=== PATIENT | female | born 1970 | race Caucasian/White ===

== ENCOUNTER 2022-02-25 19:00 | Emergency (ER) | payer MEDICAID, SELFPAY ==
[2022-02-25 18:59] VITALS: BP 126/64; PULSE 93; RESP 16; TEMP 36.2; O2SAT 99
--- NOTE | 2022-02-25 19:41 | ED.PSYCH ---
HPI - Psych General Chief Complaint: Psychiatric Symptoms <Brenda Seals MD - Last Filed: 02/26/22 07:12> Stated Complaint: HALLUCINATIONS <Brenda Seals MD - Last Filed: 02/26/22 07:12> Time Seen by Provider: 02/25/22 19:08 <Brenda Seals MD - Last Filed: 02/26/22 07:12> History of Present Illness HPI Narrative: 51-year-old female with history of bipolar disorder who is not currently taking medications and denies any recent drug use presents here after being brought by EMS and police due to being found hallucinating and locking her self in the bathroom. She denies any complaints at all to me. States that she is here because they wanted her to get some olanzapine. <Brenda Seals MD - Last Filed: 02/26/22 07:12> Review of Systems Review of Systems: CONST: No fever. HEENT: No sore throat C/V: No chest pain RESP: No cough GI: No abdominal pain : No dysuria. M/S: No joint pain. SKIN: No rash. NEURO: [No headache or focal numbness or weakness] PSYCH: Hallucinations <Brenda Seals MD - Last Filed: 02/26/22 07:12> FOR[facility]LY [facility] Past Medical History Medical History: Medical History (Updated 02/26/22 @ 07:57 by Erick Pantoja DO) Bipolar 1 disorder <Brenda Seals MD - Last Filed: 02/26/22 07:12> Social History Social History: Social History (Updated 02/25/22 @ 19:43 by Brenda Seals MD) Substance use type: unknown <Brenda Seals MD - Last Filed: 02/26/22 07:12> Exam Narrative: EXAMINATION OF ORGAN SYSTEMS/BODY AREAS: Constitutional: Vital signs per nursing GENERAL:[No acute distress, non-toxic appearing.] HEAD: Normal with no signs of head trauma. EYES: EOMI, conjunctiva normal ENT: Hearing grossly intact LUNGS: Nonlabored breathing. HEART: [Regular rate and rhythm] ABD: [Soft], nondistended EXT: Normal range of motion SKIN: [No rashes or lesions.] NEURO: [Alert and oriented x 3. No gross focal sensory or strength deficits.] PSYCH: Randomly giggling to herself in the room. Cooperative, pleasant, and answering questions <Brenda Seals MD - Last Filed: 02/26/22 07:12> Course Course Emergency Course: Care turned over to myself at shift change. Patient currently resting in bed agrees initial H&P Patient accepted to [facility] by Dr. Saul <Erick Pantoja DO - Last Filed: 02/26/22 07:57> Vital Signs Vital signs: Vital Signs Temperature 97.2 F L 02/25/22 18:59 Pulse Rate 93 02/25/22 18:59 Respiratory Rate 16 02/25/22 18:59 Blood Pressure 126/64 02/25/22 18:59 Pulse Oximetry 99 02/25/22 18:59 Oxygen Delivery Room Air 02/25/22 18:59 Temperature 97.2 F L 02/25/22 18:59 Pulse Rate 93 02/25/22 18:59 Respiratory Rate 16 02/25/22 18:59 Blood Pressure 126/64 02/25/22 18:59 Pulse Oximetry 99 02/25/22 18:59 Oxygen Delivery Room Air 02/25/22 18:59 <Brenda Seals MD - Last Filed: 02/26/22 07:12> Vital Signs Temperature 97.2 F L 02/25/22 18:59 Pulse Rate 93 02/25/22 18:59 Respiratory Rate 16 02/25/22 18:59 Blood Pressure 126/64 02/25/22 18:59 Pulse Oximetry 99 02/25/22 18:59 Oxygen Delivery Room Air 02/25/22 18:59 Temperature 97.2 F L 02/25/22 18:59 Pulse Rate 93 02/25/22 18:59 Respiratory Rate 16 02/25/22 18:59 Blood Pressure 126/64 02/25/22 18:59 Pulse Oximetry 99 02/25/22 18:59 Oxygen Delivery Room Air 02/25/22 18:59 <Erick Pantoja DO - Last Filed: 02/26/22 07:57> MDM - Psych MDM Narrative Medical decision making narrative: 1-year-old female presenting with bizarre behavior and hallucinations, but denies any symptoms and is overall well-appearing. Vital signs stable, on exam she is giggling to herself and appears internally preoccupied. Labs obtained and fiber worker consulted. She is medically clear for psychiatric evaluation. pick up worker recommends inpatient hospitalization. Signed out to oncoming ER physician pending this. <Brenda Seals MD - Last
[2022-02-25 20:14] LABS: Basophils Percent Auto 0.7 % (0.2-1.2); Eosinophils Percent Auto 0.2 % (0-4.4); Hematocrit 44.3 % (37.0-47.0); Hemoglobin 14.2 g/dL (12.0-15.0); Immature Granulocyte Absolute 0.01 K/mm3 (0.00-0.031); Immature Granulocyte Percent A 0.2 % (0-0.5); Lymphocytes Absolute Auto 0.53 K/mm3 (0.9-3.2); Lymphocytes Percent Auto 9.3 % (18.3-44.2); Mean Corpuscular HGB Conc 32.1 g/dl (32-36); Mean Corpuscular Hemoglobin 29.6 pg (26-34); Mean Corpuscular Volume 92.5 fl (80-100); Mean Platelet Volume 11.3 fl (7.4-10.4); Monocytes Absolute Auto 0.5 K/mm3 (0.1-0.6); Monocytes Percent Auto 8.8 % (2.6-8.5); Neutrophils Absolute Auto 4.6 K/mm3 (1.3-6.7); Neutrophils Percent Auto 80.8 % (45.5-73.1); Platelet Count Result 212 k/mm3 (150-375); Red Blood Count 4.79 M/mm3 (4.2-5.4); White Blood Count 5.7 K/mm3 (4.5-10.0)
[2022-02-25 20:23] LABS: Alanine Aminotransferase 27 U/L (6-35); Albumin Level 4.6 g/dL (3.5-5.1); Alkaline Phosphatase 105 U/L (38-126); Anion Gap 14 mmol/L (8-16); Aspartate Amino Transferase 32 U/L (14-36); Bilirubin,Total 0.8 mg/dL (0.2-1.3); Blood Urea Nitrogen 15 mg/dL (7-17); Calcium 9.1 mg/dL (8.4-10.2); Carbon Dioxide 22 mmol/L (22-30); Chloride 106 mmol/L (98-107); Estimated CRCL calculation 89 ml/min; Estimated Glomerular Filt Rate > 60; Glucose 132 mg/dL (65-110); Potassium 3.5 mmol/L (3.4-5.0); Sodium 142 mmol/L (137-145)
[2022-02-25 20:24] LABS: Ethanol < 10 mg/dL (<10)
[2022-02-25 21:11] LABS: SARS-CoV-2 RNA PCR Negative
[2022-02-25 22:17] LABS: Appearance Urine Clear (Clear); Bilirubin Urine 1+ (Negative); Blood Urine Negative (Negative); Color Urine Yellow (Yellow); Glucose Urine UA Negative (Negative); Ketones Urine 2+ mg/dL (Negative); Nitrate Urine Negative (Negative); Protein Urine Trace mg/dL (Negative); Specific Grav Ur >= 1.030 (1.001-1.035); Urobilinogen Urine 0.2 mg/dL (<2.0); pH Urine 5.5 (5.0-9.0)
[2022-02-25 22:18] LABS: Leukocyte Esterase Ur Negative LEU/UL (Negative)
[2022-02-25 22:24] LABS: Mucus Urine Few /lpf; RBC Urine 0-2 /hpf (0-2); Squamous Epithelial Cell Urine Rare /hpf (Few); WBC Urine 0-3 /hpf
[2022-02-25 22:34] LABS: Amphetamine Screen Urine Negative (Negative); Barbiturate Screen Urine Negative (Negative); Benzodiazepines Screen Urine Negative (Negative); Cannabinoid Screen Urine Negative (Negative); Cocaine Screen Urine Negative (Negative); Methadone Screen Urine Negative (Negative); Opiate Screen Urine Negative (Negative); Phencyclidine Screen Urine Negative (Negative)
[2022-02-25 22:42] LABS: Add Urine Microscopic? YES
--- NOTE | 2022-02-25 22:49 | PC.NURSE ---
Spoke with Lazara from [facility] she faxed patients chart over to [facility]. Was told to call [facility] after I hear back from [facility].
--- NOTE | 2022-02-26 00:49 | PC.NURSE ---
Spoke with real estate representative from [facility] and gave report on the patient at this time.
--- NOTE | 2022-02-26 02:58 | PC.NURSE ---
PT BELONGINGS LOCKED IN CABINET
[2022-02-26] MEDS: HALOPERIDOL LACTATE 5 MG/ML VIAL IM (06:20)
--- NOTE | 2022-02-26 08:00 | PC.NURSE ---
[facility] declined transfer [facility] declined transfer [facility] accepted transfer [facility] [id number] trip [id number]
[2022-02-26 09:11] VITALS: BP 102/67; PULSE 76; RESP 20; O2SAT 97
== END 2022-02-26 09:18 | disposition short-term general hospital (02) ==
PROVIDERS: Emergency Provider Emergency Medicine
DX: R44.3 Hallucinations, unspecified (principal); F31.9 Bipolar disorder, unspecified; Z20.822 Contact with and (suspected) exposure to COVID-19
CPT/HCPCS: 36415; 80053; 80307; 81001; 84443; 85025; 96372; 99285; C9803; J1630; U0003; U0005